=== PATIENT | male | born 1960 | race Caucasian/White ===

== ENCOUNTER → 2019-01-04 | Outpatient (CLI) | payer OTHER ==
--- NOTE | 2019-01-04 12:55 | RAD ---
EXAM: AP, lateral and spot views of the lumbar spine DATE: 01/04/2019 12:00 AM INDICATION: Chronic low back pain COMPARISON: No Prior FINDINGS: There are 5 nonrib-bearing lumbar-type vertebral bodies. Vertebral body heights are preserved. Intervertebral disc heights are preserved. Small endplate osteophytes are seen. Mild straightening of the normal lumbar lordosis. No spondylolisthesis. IMPRESSION: 1. Endplate proliferative changes are seen. 2. Negative acute fracture or subluxation. Electronically signed by: Truman Duran MD (01/04/2019 12:52 PM) [email or web address]
--- NOTE | 2019-01-04 12:55 | RAD ---
EXAM: AP and lateral views left knee DATE: 01/04/2019 12:00 AM INDICATION: Left knee pain-chronic COMPARISON: No Prior FINDINGS: No evidence of acute fracture or dislocation. Joint spaces are preserved without significant degenerative/proliferative change. No knee joint effusion IMPRESSION: No evidence of acute fracture or dislocation. Electronically signed by: Truman Duran MD (01/04/2019 12:52 PM) [email or web address]
== END | disposition home or self-care (01) ==
LOC: RAD 11:16
PROVIDERS: ATTEND Surgery
DX: M25.78 Osteophyte, vertebrae (principal); M51.36 Other intervertebral disc degeneration, lumbar region; G89.29 Other chronic pain
CPT/HCPCS: 72100; 73560